=== PATIENT | male | born 1975 | race Caucasian/White ===

== ENCOUNTER → 2017-03-30 | Outpatient (CLI) | payer BC ==
[~2017-03-30] MED LIST: AMITRIPTYLINE; OXYC-57 PO; PARO1TAB9 PO; PROM25TA PO; SINCALIDE INJ 3.2 MCG in SODIUM CHLORIDE 0.9% 100ML 100 ML IV SCH
--- NOTE | 2017-03-30 07:52 | DIAGNOSTIC IMAGING REPORT ---
BILIARY ULTRASOUND CLINICAL HISTORY: Abdominal distention, diarrhea. COMPARISON STUDY: No previous studies for comparison. FINDINGS: The pancreas appears normal as visualized. No focal hepatic masses are visualized. There is no ductal dilatation. The common bile duct measures 3 mm. There is no right-sided hydronephrosis. There is a 12 mm gallstone. There is no gallbladder wall thickening. There is no pericholecystic fluid. IMPRESSION: Cholelithiasis. No evidence of ductal dilatation. Electronically signed by: Han Perla M.D. 03/30/2017 7:50 AM Dictated Date/Time: 03/30/2017 7:49 AM
--- NOTE | 2017-03-30 10:00 | DIAGNOSTIC IMAGING REPORT ---
NUCLEAR MEDICINE HEPATOBILIARY STUDY WITH EJECTION FRACTION ANALYSIS CLINICAL HISTORY: Abdominal distention, diarrhea. Cholelithiasis. COMPARISON STUDY: Biliary ultrasound dated 03/30/2017 FINDINGS: The patient was injected with 5.3 mCi of technetium 99m Choletec. Sequential anterior imaging was performed. The gallbladder is first visualized on the 15 minute image. At 1 hour, the patient was administered 3.2 mcg of sincalide utilizing a 30 minute intravenous infusion. The gallbladder ejection fraction was diminished measuring 20%. IMPRESSION: 1. No evidence of cystic duct obstruction 2. Abnormal gallbladder ejection fraction of 20%. Electronically signed by: Han Perla M.D. 03/30/2017 9:58 AM Dictated Date/Time: 03/30/2017 9:55 AM
== END | disposition home or self-care (01) ==
LOC: C.ULTR 07:08
PROVIDERS: ATTEND Nurse Practitioner Family
DX: R14.0 Abdominal distension (gaseous) (principal); R19.7 Diarrhea, unspecified; Z98.84 Bariatric surgery status; K80.20 Calculus of gallbladder without cholecystitis without obstruction

== ENCOUNTER 2017-06-04 11:36 | Emergency (ER) | payer BC ==
[~2017-06-04] VITALS: Ht 190.5 cm; Wt 167.0 kg
[~2017-06-04 11:36] MED LIST changes: -SINCALIDE INJ 3.2 MCG in SODIUM CHLORIDE 0.9% 100ML 100 ML IV SCH
[2017-06-04 11:43] VITALS: TEMP 36.6; Ht 190.5 cm; Wt 167.0 kg
[2017-06-04] MEDS ORDERED: SODIUM CHLORIDE 0.9% 1000ML 1,000 ML IV STA (12:13)
[2017-06-04] MEDS ORDERED: MoRPHine SULFATE 10 MG/ML CARP/VIAL IV STA (12:13)
[2017-06-04] MEDS ORDERED: ONDANSETRON INJ 2 MG/ML 2 ML VIAL IV STA (12:13)
[2017-06-04] MEDS ORDERED: OXYC1TAB3 PO ×2 (12:42→15:06)
[2017-06-04] MEDS ORDERED: CHOL2000 PO (12:42)
[2017-06-04] MEDS ORDERED: LEVO75TA5 PO (12:42)
[2017-06-04] MEDS ORDERED: BUPR200T2 PO (12:42)
[2017-06-04] MEDS ORDERED: MULT-506 PO (12:42)
[2017-06-04 12:56] LABS: BASO % 0.2 %; BASO ABS # 0.02 K/uL (0-0.2); COMPLETE YES; EOS % 0.4 %; HEMATOCRIT 43.8 % (42-52); IG% 0.2 %; LYMPH % 18.6 %; LYMPH ABS # 1.81 K/uL (1.2-3.4); MEAN CELL VOLUME 89.6 fL (80-100); MEAN CORPUSCULAR HEMOGLOBIN 31.1 pg (25-34); MEAN CORPUSCULAR HGB CONC 34.7 g/dl (32-36); MEAN PLATELET VOLUME 9.9 fL (7.4-10.4); NEUT % 72.6 %; PLATELET COUNT 224 K/uL (130-400); RED BLOOD COUNT 4.89 M/uL (4.7-6.1); WHITE BLOOD COUNT 9.71 K/uL (4.8-10.8)
[2017-06-04 13:14] LABS: CALCIUM 9.9 mg/dl (8.5-10.1); CREATININE 1.09 mg/dl (0.60-1.40); POTASSIUM 3.9 mmol/L (3.5-5.1)
--- NOTE | 2017-06-04 13:32 | DIAGNOSTIC IMAGING REPORT ---
ABD/PELVIS WITHOUT FOR STONE CLINICAL HISTORY: 42 years-old Male presenting with hx stones; R flank pain. TECHNIQUE: Multidetector CT of the abdomen and pelvis was performed without the use of intravenous contrast. IV contrast: None. A dose lowering technique was used consistent with the principles of ALARA (as low as reasonably achievable). COMPARISON: IVP from 2007. CT DOSE (mGy.cm): The estimated cumulative dose is 2299.73 mGy.cm. FINDINGS: [employer] topogram: Unremarkable. Lung bases: Lung bases clear. Normal heart size. No pericardial or pleural effusion. Liver: Normal morphology. Density consistent with hepatic steatosis. Biliary: No gross biliary ductal dilatation allowing for noncontrast technique. Gallbladder surgically absent. Mild inflammatory changes noted in the gallbladder fossa. Pancreas: Moderate parenchymal atrophy. Spleen: Normal noncontrast appearance. Adrenal glands: Normal. Kidneys and ureters: Mild right hydronephrosis with an obstructing 6 mm calculus at the level of the mid ureter (sacrum). Periureteral fat stranding and ureteral dilatation noted proximal to this. Perinephric fat stranding on the right. 2 additional punctate renal calculi noted in the interpolar region on the right. Punctate calculus also noted at the lower pole of the left kidney. No left hydronephrosis. Normal left ureter. Bladder: Incompletely evaluated secondary to underdistention. Pelvic organs: Prostate and seminal vesicles normal. Bowel: Mild pericolonic fat infiltration along the ascending colon, likely secondary. No bowel obstruction. Postsurgical changes of sleeve gastrectomy. Peritoneal cavity: Mild infiltration of the small bowel mesentery with associated lymph nodes, likely mesenteric panniculitis. No free fluid or gas. Lymph nodes: Prominent but subcentimeter lymph nodes noted in the mesentery associated with fat infiltration. Enlarged lymph node in the alex hepatis measuring 19 mm in the short axis (series 3 image 113). Additional enlarged portacaval lymph node. Evaluation limited by the absence of intravenous contrast. Vasculature: Normal noncontrast appearance. Abdominal wall: Infiltration in the right upper quadrant abdominal wall subcutaneous tissue with overlying skin thickening may relate to a port site. No focal fluid collection. Musculoskeletal: Degenerative changes of the spine. Mild anterior height loss of the T11 vertebral body without CT evidence of underlying osteopenia. IMPRESSION: 1. Obstructing 6 mm calculus in the right ureter at the level of the sacrum with resultant mild right hydroureteronephrosis. 2. Bilateral nephrolithiasis. 3. Postsurgical changes of cholecystectomy, which is most likely recent given the infiltration of the gallbladder fossa, which likely represents postsurgical granulation tissue. 4. Right abdominal wall subcutaneous infiltration and overlying skin thickening may relate to a port site. Correlate clinically to exclude cellulitis. 5. Mesenteric panniculitis. 6. Pathologically enlarged lymph node in the alex hepatis is of uncertain etiology and likely reactive given the recent cholecystectomy. Follow-up to be considered to ensure resolution. Electronically signed by: Dusty Hyde M.D. 06/04/2017 1:31 PM Dictated Date/Time: 06/04/2017 1:21 PM
[2017-06-04 15:09] LABS: URINE APPEARANCE CLEAR (CLEAR); URINE BILIRUBIN NEG (NEG); URINE COLOR ORANGE; URINE NITRITE NEG (NEG); URINE PH 7.5 (4.5-7.5); URINE SPECIFIC GRAVITY 1.011 (1.000-1.030); UROBILINOGEN NEG (NEG)
[2017-06-04 15:18] LABS: MANUAL MICROSCOPIC REQUIRED? NO; REVIEW REQ? NO
[2017-06-04 15:19] LABS: SULFASALICYLIC ACID POS (NEG)
[2017-06-04] MEDS ORDERED: TAMS0.4C38 PO (15:40)
[2017-06-04 15:58] VITALS: BP 144/113; PULSE 85; O2SAT 96
--- NOTE | 2017-06-04 20:07 | EMERGENCY ROOM VISIT NOTE ---
ED Visit Note First contact with patient: 11:49 Chief Complaint: I think I'm passing a kidney stone on having right flank pain. History of Present Illness: Mr. Coleman is a 42 year-old white male who ambulates into the ED accompanied by female friend complaining of right flank pain. Historically patient reports kidney stones without complication and status post 9 days cholecystectomy. Patient reports acute onset of right flank pain that started last evening approximately 12 hours ago. Since that time the pain has been constant but controlled with OxyIR from his recent cholecystectomy surgery. The pain is currently described as a deep aching and sharp. He rates his current discomfort 10/10. The pain is radiating around the abdomen towards the bladder. He has not identified any aggravating or alleviating factors related to the pain. As previously noted he has been using OxyIR with his last dose approximately 2 hours ago. Associated with his pain he reports hematuria. Patient denies fevers, chills, sweats, skin eruptions, skin color changes, upper respiratory tract symptoms, shortness of breath, chest pain, nausea, vomiting, diarrhea, constipation, rectal bleeding, black/tarry stools, urinary symptoms. Review of Systems: As noted above in history of present illness. All body systems were reviewed and found to be negative as noted above. Past Medical History: As previously noted, diabetes, hypertension, bronchitis, pneumonia, gastric ulcers, anxiety, depression, status post gastric sleeve insertion, unspecified back surgery and tonsillectomy. Current Medications: Medications Dose Route/Sig Max Daily Dose Days Date Category Roxicodone Ir (Oxycodone HCl) 5 Mg Tab 1-2 Tab PO Q4H PRN 06/04/17 Reported Multivitamin (Multivitamins) Tab 1 Tab PO DAILY 06/04/17 Reported Vitamin D3 (Cholecalciferol) 2,000 Unit Cap 4 Cap PO DAILY 06/04/17 Reported Wellbutrin Sr (Bupropion HCl) 200 Mg Ertab 200 Mg PO BID 06/04/17 Reported Levothyroxine Sodium 75 Mcg Tab 1 Tab PO DAILY 06/04/17 Reported Allergies to Medications: Unspecified antihypertensive medication. Social History: Patient is currently employed; he feels safe in his home environment; he denies tobacco use and admits to alcohol use. Physical Examination: Vital Signs: Date Time Temp Pulse Resp B/P (MAP) Pulse Ox O2 Delivery O2 Flow Rate FiO2 06/04/17 15:58 85 144/113 96 06/04/17 14:14 87 20 129/60 100 Room Air 06/04/17 11:43 36.6 92 20 173/116 100 Room Air GENERAL: 42-year-old male in mild distress due to pain, nontoxic-appearing, afebrile and hemodynamically stable. NEUROLOGICAL: Awake, alert and oriented to person, place and time. Answering questions appropriately and following commands. Normal gait. Good hand eye coordination. SKIN: Warm, dry and pink. No soft tissue eruptions or trauma noted. HEENT: Atraumatic and normocephalic. PERRLA. Sclera white and conjunctiva pink. Oral cavity moist and pink. Pharynx is nonerythematous or edematous. Speech normal. No lymphadenopathy. Trachea midline. No jugular venous distention. BACK: No tenderness over the bony spine. No CVA tenderness. THORAX: Lungs sounds are clear to auscultation and equal bilaterally with symmetrical chest wall. No wheezing, rales or rhonchi. No crepitus, tenderness , subcutaneous air or deformities noted. HEART: Regular rate and rhythm. No gallops, rubs or murmurs are appreciated. ABDOMEN: Obese, soft and nontender. Recent surgical sites are clean dry and intact without signs of infection. Positive bowel sounds in all quadrants. No guarding, rigidity or organomegaly. EXTREMITIES: Moves all extremities well on command and with purpose. All distal neurovascular statuses are intact and equal bilaterally. ED Course: Patient is assessed as noted above. Patient's medication list was reviewed. Laboratory Testing: Test 06/04/17 12:20 06/04/17 14:30 Range/Units White Blood Count 9.71 4.8-10.8 K/uL Red Blood Count 4.89 4.7-6.1 M/uL Hemoglobin 15.2 14.0-18.0 g/dL Hematocrit 43.8 42-52 % Mean Corpuscular Volume 89.6 80-100 fL Mean Corpuscular Hemoglobin 31.1 25-34 pg Mean Corpuscular Hemoglobin Concent 34.7 32-36 g/dl Platelet Count 224 130-400 K/uL Mean Platelet Volume 9.9 7.4-10.4 fL Neutrophils (%) (Auto) 72.6 % Lymphocytes (%) (Auto) 18.6 % Monocytes (%) (Auto) 8.0 % Eosinophils (%) (Auto) 0.4 % Basophils (%) (Auto) 0.2 % Neutrophils # (Auto) 7.04 1.4-6.5 K/uL Lymphocytes # (Auto) 1.81 1.2-3.4 K/uL Monocytes # (Auto) 0.78 0.11-0.59 K/uL Eosinophils # (Auto) 0.04 0-0.5 K/uL Basophils # (Auto) 0.02 0-0.2 K/uL RDW Standard Deviation 43.8 36.4-46.3 fL RDW Coefficient of Variation 13.4 11.5-14.5 % Immature Granulocyte % (Auto) 0.2 % Immature Granulocyte # (Auto) 0.02 0.00-0.02 K/uL Sodium Level 135 136-145 mmol/L Potassium Level 3.9 3.5-5.1 mmol/L Chloride Level 101 98-107 mmol/L Carbon Dioxide Level 25 21-32 mmol/L Anion Gap 9.0 3-11 mmol/L Blood Urea Nitrogen 17 7-18 mg/dl Creatinine 1.09 0.60-1.40 mg/dl Est Creatinine Clear Calc Drug Dose 143.7 ml/min Estimated GFR () 95.2 Estimated GFR (Non- 82.1 BUN/Creatinine Ratio 16.0 10-20 Random Glucose 126 70-99 mg/dl Calcium Level 9.9 8.5-10.1 mg/dl Total Bilirubin 0.9 0.2-1 mg/dl Direct Bilirubin 0.2 0-0.2 mg/dl Aspartate Amino Transf (AST/SGOT) 25 15-37 U/L Alanine Aminotransferase (ALT/SGPT) 34 12-78 U/L Alkaline Phosphatase 104 45-117 U/L Total Protein 8.2 6.4-8.2 gm/dl Albumin 3.6 3.4-5.0 gm/dl Lipase 112 73-393 U/L Urine Color ORANGE Urine Appearance CLEAR CLEAR Urine pH 7.5 4.5-7.5 Urine Specific [place] 1.011 1.000-1.030 Urine Protein TRACE NEG Urine Glucose (UA) NEG NEG Urine Ketones NEG NEG Urine Occult Blood 3+ NEG Urine Nitrite NEG NEG Urine Bilirubin NEG NEG Urine Urobilinogen NEG NEG Urine Leukocyte Esterase SMALL NEG Urine WBC (Auto) 1-5 0-5 /hpf Urine RBC (Auto) >30 0-4 /hpf Urine Hyaline Casts (Auto) 0 0-5 /lpf Urine Epithelial Cells (Auto) 10-20 0-5 /lpf Urine Bacteria (Auto) NEG NEG Noncontrast abdominal/pelvic CT: Was reviewed by myself and read by the radiologist showing a obstructing 6 mm calculus in the right ureter at the level of the sacrum with mild right hydroureteronephrosis, bilateral nephrolithiasis, postsurgical changes of colonoscopy, right abdominal wall subcutaneous infiltration, mesenteric panniculitis, lymph node enlargement at the alex hepatis. Patient was hydrated with normal saline, and he received 6 mg of morphine IV for pain and 4 mg of Zofran IV. Patient was reassessed multiple times during his stay in the emergency department. Patient's case was reviewed with ; we agreed on diagnostic approach , treatment, disposition and plan. Patient was educated about today's findings and instructed on his treatment plan ; he verbalizes understanding and agreement with this plan. Clinical Impression: Right ureter calculus. Decision-Making: Initially my differential diagnosis I considered ureter calculus, pyelonephritis, postsurgical infection, bowel obstruction, constipation and other causes. Disposition: Patient discharged home in stable condition accompanied by his ; prior to departure he was reassessed and subjectively reported he was feeling much better and rated his discomfort 4/10. Plan: She was placed on a sliding pain scale of acetaminophen, ibuprofen and OxyIR; he was educated appropriate narcotic use and his name was checked on the state database and no red flags were noted. Was noted that the patient received OxyIR recently for his recent surgery but when questioned he reported he only had one or 2 tablets left at home. Patient was prescribed Flomax and instructed on achieves. Patient was encouraged to stay well-hydrated with increased clear fluids. A she was encouraged to strain all urine and collect all stones for analysis. Patient was encouraged to follow-up with his urologist for reevaluation and stones studies. Patient is encouraged return ED for uncontrolled pain, fevers, urinary symptoms , vomiting or any new/concerning symptoms.
== END 2017-06-04 15:59 | disposition home or self-care (01) ==
LOC: C.EDB 11:39 → C.EDA 15:59
DX: N13.2 Hydronephrosis with renal and ureteral calculous obstruction (principal); Z87.442 Personal history of urinary calculi; Z90.49 Acquired absence of other specified parts of digestive tract; E11.9 Type 2 diabetes mellitus without complications; I10 Essential (primary) hypertension; Z87.01 Personal history of pneumonia (recurrent); F41.9 Anxiety disorder, unspecified; F32.9 Major depressive disorder, single episode, unspecified; Z98.84 Bariatric surgery status; Z79.899 Other long term (current) drug therapy

== ENCOUNTER → 2017-06-24 | Outpatient (CLI) | payer BC ==
[~2017-06-24] MED LIST changes: -AMITRIPTYLINE; +BUPR200T2 PO; +CHOL2000 PO; +LEVO75TA5 PO; +MULT-506 PO; -OXYC-57 PO; +OXYC1TAB3 PO; -PARO1TAB9 PO; -PROM25TA PO; +TAMS0.4C38 PO
== END | disposition home or self-care (01) ==
LOC: C.LAB 18:05
PROVIDERS: ATTEND Urology
DX: N20.0 Calculus of kidney (principal)

== ENCOUNTER → 2017-07-07 | Outpatient (CLI) | payer BC ==
--- NOTE | 2017-07-07 12:42 | DIAGNOSTIC IMAGING REPORT ---
KUB HISTORY: N20.1 Ureteric stone [id number] COMPARISON: Abdomen and pelvis CT 06/04/2017. FINDINGS: The bowel gas pattern is unremarkable. There are no dilated loops of small bowel to suggest an obstruction. The right renal shadows are partially obscured by overlying bowel gas. No definite right renal calculi. There is a punctate stone within the lower pole the left kidney. Cholecystectomy. No ureteral or bladder calculi. No pneumoperitoneum or pneumatosis. IMPRESSION: 1. Left-sided nephrolithiasis. 2. No ureteral calculi. Electronically signed by: Gume Abel M.D. 07/07/2017 12:41 PM Dictated Date/Time: 07/07/2017 12:39 PM
--- NOTE | 2017-07-07 13:24 | DIAGNOSTIC IMAGING REPORT ---
RENAL ULTRASOUND HISTORY: N20.1 Ureteric stone [id number] COMPARISON: KUB 07/07/2017. FINDINGS: Right kidney: 14.4 cm. No hydronephrosis. Normal corticomedullary differentiation and cortical thickness. Left kidney: 12.6 cm. No hydronephrosis. Normal corticomedullary differentiation and cortical thickness. Bladder: Not well distended but likely unremarkable. The ureteral jets are not identified IMPRESSION: Normal kidneys. No hydronephrosis. Electronically signed by: Gume Abel M.D. 07/07/2017 1:22 PM Dictated Date/Time: 07/07/2017 1:21 PM
== END | disposition home or self-care (01) ==
LOC: C.ULTR 12:01
PROVIDERS: ATTEND Urology
DX: N20.0 Calculus of kidney (principal)

== ENCOUNTER → 2017-09-29 | Outpatient (CLI) | payer BC, OTHER ==
--- NOTE | 2017-09-29 15:50 | DIAGNOSTIC IMAGING REPORT ---
RENAL ULTRASOUND CLINICAL HISTORY: Ureteric stone. COMPARISON STUDY: CT of the abdomen and pelvis June 04, 2017 and renal ultrasound July 07, 2017. TECHNIQUE: Sonography of the kidneys and the urinary bladder was performed. FINDINGS: There is no hydronephrosis. The right kidney measures 14.6 cm in maximal dimension and the left measures 12.7 cm. There is a suspected 3 mm right renal calculus. Note is made of a probable 1.7 cm left renal cyst. Both ureteral jets were identified. Evaluation of the kidneys is mildly compromised due to suboptimal penetration. IMPRESSION: 1. No hydronephrosis. 2. Probable small right renal calculus. Electronically signed by: Miguel Ma M.D. 09/29/2017 3:49 PM Dictated Date/Time: 09/29/2017 3:48 PM
== END | disposition home or self-care (01) ==
LOC: C.ULTR 14:55
PROVIDERS: ATTEND Urology
DX: N20.1 Calculus of ureter (principal)

== ENCOUNTER → 2017-11-24 | Outpatient (CLI) | payer OTHER ==
--- NOTE | 2017-11-24 17:50 | DIAGNOSTIC IMAGING REPORT ---
R ANKLE MIN 3 VIEWS ROUTINE CLINICAL HISTORY: Right ankle pain M25.571 COMPARISON: None. DISCUSSION: No acute fractures or dislocations are visualized. There are distal Achilles tendon calcifications. There are no erosive or destructive changes. IMPRESSION: 1. No fractures or dislocations identified 2. Distal Achilles tendon calcification. Electronically signed by: Han Perla M.D. 11/24/2017 5:48 PM Dictated Date/Time: 11/24/2017 5:47 PM
== END | disposition home or self-care (01) ==
LOC: C.RAD 17:24
PROVIDERS: ATTEND Student in an Organized Health Care Education/Training Program
DX: M25.571 Pain in right ankle and joints of right foot (principal); M25.871 Other specified joint disorders, right ankle and foot